=== PATIENT | female | born 1975 | race Caucasian/White ===

== ENCOUNTER 2022-09-28 19:21 | Emergency (ER) | payer OTHER, SELFPAY ==
[2022-09-28 19:37] VITALS: BP 114/67; PULSE 75; RESP 18; TEMP 36.1; O2SAT 99; BMI 34.6
[2022-09-28 20:06] LABS: Lactate* 0.8 mmol/L (0.5-1.9)
[2022-09-28 20:09] LABS: Basophils Percent Auto 0.2 % (0.0-3.0); Eosinophils Percent Auto 0.9 % (0.0-7.0); Hematocrit 43.7 % (33.0-51.0); Hemoglobin* 14.2 gm/dL (12.0-16.0); Immature Granulocytes Pct Auto 0.2 %; Lymphocytes Percent Auto 14.9 % (20-44); Mean Corpuscular HGB Conc 33 gm/dL (32-36); Mean Corpuscular Hemoglobin 27 pg (26-34); Mean Corpuscular Volume 84 fL (80-100); Monocytes Percent Auto 4.1 % (0.0-11.0); Neutrophils Percent Auto 79.7 % (42.0-72.0); Platelet Count* 290 K/uL (140-440); RDW Coefficient of Variation % 13.2 % (11.5-15.5); Red Blood Count 5.22 m/uL (4.00-5.20); White Blood Count* 12.79 K/uL (4.50-11.00)
[2022-09-28 20:23] LABS: Appearance Urine Turbid (Clear); Bilirubin Urine Negative (Negative); Blood Urine Negative (Negative); Color Urine Yellow (Yellow); Glucose Urine Negative (Negative); Ketones Urine Negative (Negative); Leukocyte Esterase Urine Negative (Negative); Nitrite Urine Negative (Negative); Protein Urine Negative (Negative); Specific Gravity Urine >= 1.030 (1.000-1.030); Urobilinogen Urine 0.2 (0.2-1.0)
[2022-09-28 20:32] LABS: RBC Urine 0-2 (0-2); WBC Urine 0-2 (0-5)
[2022-09-28 20:33] LABS: Slide Review Reflex No
[2022-09-28 20:39] LABS: Albumin* 4.2 g/dL (3.3-5.0); Chloride* 109 mmol/L (96-114)
[2022-09-28 20:40] LABS: Potassium* 3.8 mmol/L (3.6-5.1); Sodium* 140 mmol/L (135-149)
[2022-09-28 20:42] LABS: Creatinine* 0.7 mg/dL (0.5-1.5); Est. Creatinine Clearance* 74.97; Estimated Glomerular Filt Rate 107 ml/min
[2022-09-28 20:43] LABS: Alanine Aminotransferase* 37 U/L (4-35); Alkaline Phosphatase* 68 U/L (40-150); Aspartate Amino Transferase* 65 U/L (12-35); Bilirubin Direct* 0.3 mg/dL (0.0-0.5); Bilirubin Total* 0.4 mg/dL (0.1-1.5); Blood Urea Nitrogen* 19 mg/dL (5-24); Carbon Dioxide* 24 mmol/L (20-32); Glucose* 150 mg/dL (60-115); Lipase* 572 U/L (23-300); Total Protein* 7.5 g/dL (6.0-8.3)
[2022-09-28 20:46] LABS: C Reactive Protein* 0.9 mg/dL (0.5-1.0)
--- NOTE | 2022-09-28 21:01 | CRLHL7_ITS ---
For Patients: As a result of the Century Cures Act, medical imaging exams and procedure reports are released immediately into your electronic medical record. You may view this report before your referring provider. If you have questions, please contact your health care provider. INDICATION: Abdominal pain, elevated lipase TECHNIQUE: CT abdomen and pelvis acquired with 90 cc Isovue 370 IV contrast. COMPARISON: None. FINDINGS: Lower chest: The visualized lower lungs are aerated. No pleural or pericardial effusion. ABDOMEN: Liver: Normal enhancement. No focal suspicious hepatic lesions. Pawel lobe. Gallbladder and biliary: Normal gallbladder without radiopaque stone. Normal caliber bile ducts. Spleen: Normal size and enhancement. Pancreas: Normal enhancement without peripancreatic inflammatory changes or ductal dilatation. Adrenal glands: Normal adrenal glands. Kidneys and ureters: Normal enhancement. No radio-opaque calculi. No hydroureteronephrosis. GI tract: Changes of the sleeve gastrectomy. Normal caliber small and large bowel loops. Normal appendix. Colonic diverticulosis without diverticulitis. Vascular structures: Normal caliber abdominal aorta. Lymph nodes: No lymphadenopathy in the abdomen or pelvis by size criteria. Peritoneum: Small amount of free fluid in the pelvis which may be physiologic. No free air or focal drainable fluid collection. PELVIS: Genitourinary system: Urinary bladder is relatively decompressed. Likely multiple exophytic/serosal uterine fibroids. Age-appropriate ovaries. Right corpus luteum cyst. SKELETAL STRUCTURES AND SOFT TISSUES: Trace retrolisthesis of L5 on S1. Mild multilevel lumbar spondylosis. IMPRESSION: 1. Normal enhancement without peripancreatic inflammatory changes or ductal dilatation. Please note move that laboratory values can proceed imaging appearance of pancreatitis. 2. No acute abdominal pelvic process. No obstruction. No hydroureteronephrosis. Normal appendix. 3. Likely multiple uterine fibroids. Please note that all CT scans at this facility use dose modulation, iterative reconstruction, and/or weight-based dosing when appropriate to reduce radiation dose to as low as reasonably achievable. Dictated by Horacio Mackey MD @ 09/28/2022 10:52:18 PM (Electronically Signed)
--- NOTE | 2022-09-28 21:15 | ED_ITS ---
HPI - General Adult General Date Seen: 09/28/22 <Ivanna Albright MD - Last Filed: 10/01/22 11:09> Chief complaint: Abdominal Pain <Ivanna Albright MD - Last Filed: 10/01/22 11:09> Stated complaint: Pain in abdomen <Ivanna Albright MD - Last Filed: 10/01/22 11:09> Time Seen by Provider: 09/28/22 19:44 <Ivanna Albright MD - Last Filed: 10/01/22 11:09> Source: patient <Ivanna Albright MD - Last Filed: 10/01/22 11:09> Mode of arrival: ambulatory <Ivanna Albright MD - Last Filed: 10/01/22 11:09> Limitations: no limitations <Ivanna Albright MD - Last Filed: 10/01/22 11:09> History of Present Illness HPI narrative: Patient is a 47-year-old woman who presents for evaluation of abdominal pain which started about an hour prior to arrival. She says earlier today after having him sandwich she had a little bit of diarrhea, but the pain did not start until after having some cheesy potatoes later this evening. She says that she developed pain across her upper and mid abdomen associated with some distention and her stomach feeling hard to the touch. She says she has had these symptoms 2 x before, once a month ago once several years ago. She is status post gastric sleeve, but does still have her gallbladder. She does not have a known gallstones. She had no significant nausea, denies vomiting or other diarrhea, no bloody stools. No fevers. She says she took some Gas-X and Tums, when the pain did not go way over 45 minutes or so at home she had it here to the hospital, but by the time she got here the pain had improved. Currently she is feeling better, pain is not completely gone but is certainly better than it was earlier. She does not smoke, she drinks rarely. <Ivanna Albright MD - Last Filed: 10/01/22 11:09> Related Data Home medications: Home Medications Medication Instructions Recorded Confirmed topiramate 25 mg capsule,extended 25 mg PO DAILY 09/28/22 09/28/22 release 24 hr topiramate 50 mg capsule,extended 50 mg PO DAILY 09/28/22 09/28/22 release 24 hr <Ivanna Albright MD - Last Filed: 10/01/22 11:09> Allergies/adverse reactions: Allergies Allergy/AdvReac Type Severity Reaction Status Date / Time No Known Drug Allergies Allergy Verified 09/28/22 19:37 <Ivanna Albright MD - Last Filed: 10/01/22 11:09> Review of Systems Status of ROS: Reports: 10 or more systems reviewed and unremarkable except as noted in History and below <Ivanna Albright MD - Last Filed: 10/01/22 11:09> PFSH PFS Social History: Social History Smoking Status: Never smoker Do you use any of these nicotine containing products: None Second hand tobacco smoke exposure: No How often do you have a drink containing alcohol: never How often do you have six or more drinks on one occasion: Never AUDIT-C Alcohol total score: 0 Non-prescribed substance use: denies use service: No <Iavnna Albright MD - Last Filed: 10/01/22 11:09> Exam Narrative: Exam Narrative: Vital signs as noted above. In general, an alert, well-appearing patient. Head: Normocephalic, atraumatic. Eyes: Pupils are equal reactive. Extraocular movements are full. Conjunctivae are normal. ENT: Mucous membranes are moist. Throat is normal. Neck: Supple without lymphadenopathy. Heart: Regular rate and rhythm. No murmur or rub. Lungs: Clear bilaterally. No increased work of breathing, crackles or wheezes. Abdomen: Soft and Nondistended, minimal diffuse upper abdominal tenderness without rebound guarding or rigidity. No focal tenderness, refused negative. No lower abdominal tenderness. Bowel sounds present. Extremities: Well perfused. No edema. No calf tenderness. Pulses intact. Neurologic: Patient is alert and oriented to person and place. Speech is fluent. Face is symmetric. Moves all extremities equally. Affect: Normal. Skin: Warm and dry. Well perfused. <Ivanna Albright MD - Last Filed: 10/01/22 11:09> Const: Vital Signs, click to edit/add: Vital Signs - 24 hr 09/28/22 19:37 09/28/22 21:22 Temperature 97.0 F L Pulse Rate [Pulse Oximeter] 75 80 Respiratory Rate 18 16 Blood Pressure [Le ft Upper Arm] 114/67 122/78 Pulse Oximetry 99 98 Oxygen Delivery Me thod Room Air Room Air <Ivanna Albright MD - Last Filed: 10/01/22 11:09> Vital Signs, click to edit/add: Vital Signs - 24 hr 09/28/22 19:37 09/28/22 21:22 Temperature 97.0 F L Pulse Rate [Pulse Oximeter] 75 80 Respiratory Rate 18 16 Blood Pressure [Le ft Upper Arm] 114/67 122/78 Pulse Oximetry 99 98 Oxygen Delivery Me thod Room Air Room Air <Horacio Patten MD - Last Filed: 09/28/22 23:04> Documenting provider has reviewed patient's vital signs: yes <Ivanna Albright MD - Last Filed: 10/01/22 11:09> Course Course Hospital Course: Following initial arrival, patient was feeling improved and therefore started just with labs. Her white blood cell count was mildly elevated at 12.8, mild left shift with 78% neutrophils. Her electrolytes were normal, BUN creatinine normal, blood sugar was 150 nonfasting. Lactate was normal at 0.8. LFTs were notable for mild elevations in her transaminases, with an AST of 65 an ALT of 37, of uncertain significance at this time. Her alk-phos was notably normal and her total bilirubin was 0.4. Her CRP was normal at 0.9. Her lipase did return elevated at 572. Urinalysis was unremarkable. Diagnostic considerations at this time include pancreatitis, biliary colic, choledocholithiasis, hepatitis, cholecystitis. I think it is reasonable to start with a CT scan and see if she has inflammation around the pancreas. It is certainly possible that symptoms represent biliary colic, by report they were more consistent with this, but the elevated lipase is somewhat atypical. From a symptomatic standpoint, she is feeling improved and does feel that she is able to go home. I think if the CT scan does not show any significant abnormalities that that is reasonable given the absence of significant abnormalities in her LFTs. Would recommend that she follow a bland diet, and that she have a low threshold for return to the emergency department if she has worsening pain or new symptoms such as fever, vomiting, etcetera. If she does go home, she should follow up with her primary doctor in the next several days, and I would recommend that she have a right upper quadrant ultrasound to further evaluate her gallbladder. Care is signed out to Dr. Patten to follow-up on her CT scan and determine final disposition and plan. <Ivanna Albright MD - Last Filed: 10/01/22 11:09> Vital Signs Vital signs: Initial Vital Signs Temperature 97.0 F L 09/28/22 19:37 Temperature Source Temporal Artery Scan 09/28/22 19:37 Pulse Rate 75 09/28/22 19:37 Respiratory Rate 18 09/28/22 19:37 Blood Pressure 114/67 09/28/22 19:37 Blood Pressure Mean 82 09/28/22 19:37 Pulse Oximetry 99 09/28/22 19:37 Oxygen Delivery Method 09/28/22 19:37 Vital Signs Temperature 97.0 F L 09/28/22 19:37 Pulse Rate 75 09/28/22 19:37 Respiratory Rate 18 09/28/22 19:37 Blood Pressure 114/67 09/28/22 19:37 Pulse Oximetry 99 09/28/22 19:37 Oxygen Delivery Method 09/28/22 19:37 Temperature 97.0 F L 09/28/22 19:37 Pulse Rate 84 09/28/22 23:09 Respiratory Rate 16 09/28/22 23:09 Blood Pressure 122/79 09/28/22 23:09 Pulse Oximetry 98 09/28/22 23:09 Oxygen Delivery Method 09/28/22 23:09 <Ivanna Albright MD - Last Filed: 10/01/22 11:09> Initial Vital Signs Temperature 97.0 F L 09/28/22 19:37 Temperature Source Temporal Artery Scan 09/28/22 19:37 Pulse Rate 75 09/28/22 19:37 Respiratory Rate 18 09/28/22 19:37 Blood Pressure 114/67 09/28/22 19:37 Blood Pressure Mean 82 09/28/22 19:37 Pulse Oximetry 99 09/28/22 19:37 Oxygen Delivery Method 09/28/22 19:37 Vital Signs Temperature 97.0 F L 09/28/22 19:37 Pulse Rate 75 09/28/22 19:37 Respiratory Rate 18 09/28/22 19:37 Blood Pressure 114/67 09/28/22 19:37 Pulse Oximetry 99 09/28/22 19:37 Oxygen Delivery Method 09/28/22 19:37 Temperature 97.0 F L 09/28/22 19:37 Pulse Rate 84 09/28/22 23:09 Respiratory Rate 16 09/28/22 23:09 Blood Pressure 122/79 09/28/22 23:09 Pulse Oximetry 98 09/28/22 23:09 Oxygen Delivery Method 09/28/22 23:09 <Horacio Patten MD - Last Filed: 09/28/22 23:04> Medical Decision Making MDM Narrative Medical decision making narrative: TOYA --received this patient at change of shift. Overall markedly improved. Essentially no pain now. CT abdomen/pelvis scan was pending at handoff. I did review these images. Radiology over-read as below IMPRESSION: 1. Normal enhancement without peripancreatic inflammatory changes or ductal dilatation. Please note move that laboratory values can proceed imaging appearance of pancreatitis. 2. No acute abdominal pelvic process. No obstruction. No hydroureteronephrosis. Normal appendix. 3. Likely multiple uterine fibroids. I discussed with Ms. Tanner these findings. She feels well going home at this point. Does note that this is the now 3rd similar episode, both self- limiting. First was about 6 months ago and last 1 about a month ago. She will try to keep track see whether is any dietary issues that might be contributing. <Horacio Patten MD - Last Filed: 09/28/22 23:04> Lab Data Labs: Lab Results 09/28/22 09/28/22 09/28/22 Range/Units 20:03 20:03 20:03 WBC 12.79 H (4.50-11.00) K/uL RBC 5.22 H (4.00-5.20) m/uL Hgb 14.2 (12.0-16.0) gm/dL Hct 43.7 (33.0-51.0) % MCV 84 (80-100) fL MCH 27 (26-34) pg MCHC 33 (32-36) gm/dL RDW Coeff of Q[place] 13.2 (11.5-15.5) % Plt Count 290 (140-440) K/uL Neut % (Auto) 79.7 H (42.0-72.0) % Lymph % (Auto) 14.9 L (20-44) % [place] % (Auto) 4.1 (0.0-11.0) % Eos % (Auto) 0.9 (0.0-7.0) % Baso % (Auto) 0.2 (0.0-3.0) % Neut # (Auto) 10.20 H (1.7-7.0) K/uL Lymph # (Auto) 1.90 (0.90-2.90) K/uL [place] # (Auto) 0.50 (0.00-0.90) K/UL Eos # (Auto) 0.10 (0.00-0.50) K/uL Baso # (Auto) 0.00 (0.00-0.30) K/uL Sodium 140 (135-149) mmol/L Potassium 3.8 (3.6-5.1) mmol/L Chloride 109 (96-114) mmol/L Carbon Dioxide 24 (20-32) mmol/L BUN 19 (5-24) mg/dL Creatinine 0.7 (0.5-1.5) mg/dL Estimated Creat Clear 74.97 Estimated GFR 107 ml/min Glucose 150 H (60-115) mg/dL Lactate (0.5-1.9) mmol/L Calcium 9.0 (8.4-10.6) mg/dL Total Bilirubin 0.4 Cancelled (0.1-1.5) mg/dL Direct Bilirubin 0.3 Cancelled (0.0-0.5) mg/dL AST 65 H Cancelled (12-35) U/L ALT 37 H Cancelled (4-35) U/L Alkaline Phosphatase 68 Cancelled (40-150) U/L C-Reactive Protein 0.9 (0.5-1.0) mg/dL Total Protein 7.5 Cancelled (6.0-8.3) g/dL Albumin 4.2 Cancelled (3.3-5.0) g/dL Lipase 572 H Cancelled (23-300) U/L Urine Color (Yellow) Urine Appearance (Clear) Urine pH (5.0-8.5) Ur Specific [place] (1.000-1.030) Urine Protein (Negative) Urine Glucose (UA) (Negative) Urine Ketones (Negative) Urine Blood (Negative) Urine Nitrite (Negative) Urine Bilirubin (Negative) Urine Urobilinogen (0.2-1.0) Ur Leukocyte Esterase (Negative) Urine RBC (0-2) Urine WBC (0-5) Ur Squamous Epith Cells (None-Few) Urine Bacteria (None) 09/28/22 09/28/22 Range/Units 20:03 20:12 WBC (4.50-11.00) K/uL RBC (4.00-5.20) m/uL Hgb (12.0-16.0) gm/dL Hct (33.0-51.0) % MCV (80-100) fL MCH (26-34) pg MCHC (32-36) gm/dL RDW Coeff of Qamar (11.5-15.5) % Plt Count (140-440) K/uL Neut % (Auto) (42.0-72.0) % Lymph % (Auto) (20-44) % [place] % (Auto) (0.0-11.0) % Eos % (Auto) (0.0-7.0) % Baso % (Auto) (0.0-3.0) % Neut # (Auto) (1.7-7.0) K/uL Lymph # (Auto) (0.90-2.90) K/uL [place] # (Auto) (0.00-0.90) K/UL Eos # (Auto) (0.00-0.50) K/uL Baso # (Auto) (0.00-0.30) K/uL Sodium (135-149) mmol/L Potassium (3.6-5.1) mmol/L Chloride (96-114) mmol/L Carbon Dioxide (20-32) mmol/L BUN (5-24) mg/dL Creatinine (0.5-1.5) mg/dL Estimated Creat Clear Estimated GFR ml/min Glucose (60-115) mg/dL Lactate 0.8 (0.5-1.9) mmol/L Calcium (8.4-10.6) mg/dL Total Bilirubin (0.1-1.5) mg/dL Direct Bilirubin (0.0-0.5) mg/dL AST (12-35) U/L ALT (4-35) U/L Alkaline Phosphatase (40-150) U/L C-Reactive Protein (0.5-1.0) mg/dL Total Protein (6.0-8.3) g/dL Albumin (3.3-5.0) g/dL Lipase (23-300) U/L Urine Color Yellow (Yellow) Urine Appearance Turbid A (Clear) Urine pH 5.0 (5.0-8.5) Ur Specific [place] >= 1.030 (1.000-1.030) Urine Protein Negative (Negative) Urine Glucose (UA) Negative (Negative) Urine Ketones Negative (Negative) Urine Blood Negative (Negative) Urine Nitrite Negative (Negative) Urine Bilirubin Negative (Negative) Urine Urobilinogen 0.2 (0.2-1.0) Ur Leukocyte Esterase Negative (Negative) Urine RBC 0-2 (0-2) Urine WBC 0-2 (0-5) Ur Squamous Epith Cells None (None-Few) Urine Bacteria None (None) <Ivanna Albright MD - Last Filed: 10/01/22 11:09> Lab Results 09/28/22 09/28/22 09/28/22 Range/Units 20:03 20:03 20:03 WBC 12.79 H (4.50-11.00) K/uL RBC 5.22 H (4.00-5.20) m/uL Hgb 14.2 (12.0-16.0) gm/dL Hct 43.7 (33.0-51.0) % MCV 84 (80-100) fL MCH 27 (26-34) pg MCHC 33 (32-36) gm/dL RDW Coeff of Qamar 13.2 (11.5-15.5) % Plt Count 290 (140-440) K/uL Neut % (Auto) 79.7 H (42.0-72.0) % Lymph % (Auto) 14.9 L (20-44) % [place] % (Auto) 4.1 (0.0-11.0) % Eos % (Auto) 0.9 (0.0-7.0) % Baso % (Auto) 0.2 (0.0-3.0) % Neut # (Auto) 10.20 H (1.7-7.0) K/uL Lymph # (Auto) 1.90 (0.90-2.90) K/uL [place] # (Auto) 0.50 (0.00-0.90) K/UL Eos # (Auto) 0.10 (0.00-0.50) K/uL Baso # (Auto) 0.00 (0.00-0.30) K/uL Sodium 140 (135-149) mmol/L Potassium 3.8 (3.6-5.1) mmol/L Chloride 109 (96-114) mmol/L Carbon Dioxide 24 (20-32) mmol/L BUN 19 (5-24) mg/dL Creatinine 0.7 (0.5-1.5) mg/dL Estimated Creat Clear 74.97 Estimated GFR 107 ml/min Glucose 150 H (60-115) mg/dL Lactate (0.5-1.9) mmol/L Calcium 9.0 (8.4-10.6) mg/dL Total Bilirubin 0.4 Cancelled (0.1-1.5) mg/dL Direct Bilirubin 0.3 Cancelled (0.0-0.5) mg/dL AST 65 H Cancelled (12-35) U/L ALT 37 H Cancelled (4-35) U/L Alkaline Phosphatase 68 Cancelled (40-150) U/L C-Reactive Protein 0.9 (0.5-1.0) mg/dL Total Protein 7.5 Cancelled (6.0-8.3) g/dL Albumin 4.2 Cancelled (3.3-5.0) g/dL Lipase 572 H Cancelled (23-300) U/L Urine Color (Yellow) Urine Appearance (Clear) Urine pH (5.0-8.5) Ur Specific [place] (1.000-1.030) Urine Protein (Negative) Urine Glucose (UA) (Negative) Urine Ketones (Negative) Urine Blood (Negative) Urine Nitrite (Negative) Urine Bilirubin (Negative) Urine Urobilinogen (0.2-1.0) Ur Leukocyte Esterase (Negative) Urine RBC (0-2) Urine WBC (0-5) Ur Squamous Epith Cells (None-Few) Urine Bacteria (None) 09/28/22 09/28/22 Range/Units 20:03 20:12 WBC (4.50-11.00) K/uL RBC (4.00-5.20) m/uL Hgb (12.0-16.0) gm/dL Hct (33.0-51.0) % MCV (80-100) fL MCH (26-34) pg MCHC (32-36) gm/dL RDW Coeff of Qamar (11.5-15.5) % Plt Count (140-440) K/uL Neut % (Auto) (42.0-72.0) % Lymph % (Auto) (20-44) % [place] % (Auto) (0.0-11.0) % Eos % (Auto) (0.0-7.0) % Baso % (Auto) (0.0-3.0) % Neut # (Auto) (1.7-7.0) K/uL Lymph # (Auto) (0.90-2.90) K/uL [place] # (Auto) (0.00-0.90) K/UL Eos # (Auto) (0.00-0.50) K/uL Baso # (Auto) (0.00-0.30) K/uL Sodium (135-149) mmol/L Potassium (3.6-5.1) mmol/L Chloride (96-114) mmol/L Carbon Dioxide (20-32) mmol/L BUN (5-24) mg/dL Creatinine (0.5-1.5) mg/dL Estimated Creat Clear Estimated GFR ml/min Glucose (60-115) mg/dL Lactate 0.8 (0.5-1.9) mmol/L Calcium (8.4-10.6) mg/dL Total Bilirubin (0.1-1.5) mg/dL Direct Bilirubin (0.0-0.5) mg/dL AST (12-35) U/L ALT (4-35) U/L Alkaline Phosphatase (40-150) U/L C-Reactive Protein (0.5-1.0) mg/dL Total Protein (6.0-8.3) g/dL Albumin (3.3-5.0) g/dL Lipase (23-300) U/L Urine Color Yellow (Yellow) Urine Appearance Turbid A (Clear) Urine pH 5.0 (5.0-8.5) Ur Specific [place] >= 1.030 (1.000-1.030) Urine Protein Negative (Negative) Urine Glucose (UA) Negative (Negative) Urine Ketones Negative (Negative) Urine Blood Negative (Negative) Urine Nitrite Negative (Negative) Urine Bilirubin Negative (Negative) Urine Urobilinogen 0.2 (0.2-1.0) Ur Leukocyte Esterase Negative (Negative) Urine RBC 0-2 (0-2) Urine WBC 0-2 (0-5) Ur Squamous Epith Cells None (None-Few) Urine Bacteria None (None) <Horacio Patten MD - Last Filed: 09/28/22 23:04> Discharge Plan Discharge Clinical Impression: Elevated lipase, Abdominal pain <Ivanna lAbright MD - Last Filed: 10/01/22 11:09> Patient Disposition: Home, Self-Care <Ivanna Albright MD - Last Filed: 10/01/22 11:09> Condition: Improved <Ivanna Albright MD - Last Filed: 10/01/22 11:09> Instructions: Pancreatitis (ED) <Ivanna Albright MD - Last Filed: 10/01/22 11:09> Additional Instructions: Spelter diet over the next day or 2, ibuprofen or Tylenol if needed. If you have worsening pain, vomiting, fevers, bloody stools, or any other new symptoms, you should return to the emergency department for re-evaluation. Otherwise, I would recommend primary care follow-up in the next few days, and would recommend an outpatient right upper quadrant ultrasound for further evaluation. <Ivanna Albright MD - Last Filed: 10/01/22 11:09> Prescriptions: No Action topiramate 50 mg capsule,extended release 24hr 50 mg PO DAILY topiramate 25 mg capsule,extended release 24hr 25 mg PO DAILY <Ivanna Albright MD - Last Filed: 10/01/22 11:09> Follow Up/Referrals: Provider,Not a Local [Primary Care Provider] - <Ivanna Albright MD - Last Filed: 10/01/22 11:09> Stand Alone Forms: [employer] Info Instructions <Ivanna Albright MD - Last Filed: 10/01/22 11:09>
[2022-09-28 21:22] VITALS: BP 122/78; PULSE 80; RESP 16; O2SAT 98
[2022-09-28 23:09] VITALS: BP 122/79; PULSE 84; RESP 16; O2SAT 98
== END 2022-09-28 23:10 | disposition home or self-care (01) ==
PROVIDERS: Emergency Provider Emergency Medicine
DX: R10.9 Unspecified abdominal pain (principal); R74.8 Abnormal levels of other serum enzymes
CPT/HCPCS: 36415; 74177; 80048; 80076; 81001; 83605; 83690; 85025; 86140; 99284; Q9967